=== PATIENT | female | born 1945 | race African-American/Black ===

== ENCOUNTER 2022-05-07 09:32 | Emergency (ER) | payer MEDICARE, SELFPAY ==
--- NOTE | ~2022-05-07 | XR_ITS ---
EXAMINATION: XR foot LT min 3V DATE: 05/07/2022 10:12 INDICATION: Lateral left foot pain. TECHNIQUE: 4 views of left foot were obtained. COMPARISON: None. FINDINGS: There is a nondisplaced transverse fracture of base of fifth metatarsal. Joint spaces are n ormal. IMPRESSION: 1. Nondisplaced transverse fracture of base of fifth metatarsal. Reviewed, dictated and finalized at location A.
[2022-05-07 09:36] VITALS: BP 146/76; PULSE 91; RESP 18; TEMP 37.2; O2SAT 100
--- NOTE | 2022-05-07 09:36 | ED.FALL ---
HPI - Fall General Chief Complaint: Fall Stated Complaint: glf with left leg/foot injury Time Seen by Provider: 05/07/22 09:36 History of Present Illness HPI Narrative: Patient is a 76-year-old female presenting to the emergency department for evaluation of left foot pain after a ground-level fall 2 days ago. Patient states that she tripped while trying to carry some mail. Patient states pain and swelling on the outside of her left foot without ankle pain, knee pain or hip pain. She has been ambulatory without difficulty. She denies head trauma or loss of conscious with the fall. She has been taking Tylenol with some improvement in the pain. Patient denies any significant bruising or history of injury to that ankle or foot in the past. Pain is aching in nature, worse with movement or exertion. Related Data Allergies Allergy/AdvReac Type Severity Reaction Status Date / Time No Known Allergies Allergy Verified 05/07/22 09:42 Review of Systems Review of Systems: CONSTITUTIONAL: Denies fever CARDIOVASCULAR: Denies chest pain RESPIRATORY: Denies cough or dyspnea. GASTROINTESTINAL: Denies abdominal pain SKIN: Denies rash MUSCULOSKELETAL: Denies back pain, reports left foot pain and swelling NEUROLOGIC: Denies headache [facility] Social History Social History (Updated 05/07/22 @ 10:14 by Zakiya Wolfe MD) Smoking status: Former smoker Alcohol intake: never Substance use: never Gender identity (if verbalized by the patient): Female Exam Narrative: GENERAL: Awake, alert, conversant HEAD: Normocephalic, atraumatic. EYES: PERRLA and EOMI. ENT: Nares clear, no rhinorrhea or epistaxis. Mucous membranes moist. NECK: Supple. CHEST: No respiratory distress, breathing even and non labored HEART: Regular rate, sinus rhythm ABDOMEN:Non distended, non tender Thorax: Pelvis stable to anterior lateral compression without pain on exam EXTREMITIES: Normal range of motion. Patient with mild lateral left foot edema which is tender on exam. No erythema, DP pulse 2+. Intact distal sensation. Mild deformity. No pain or tenderness at the lateral or medial malleolus. Full left knee flexion and extension without limitation. No patellar pain. SKIN: Warm, dry, no rash. NEURO:No focal deficits. Alert and oriented x3 Course Vital Signs Vital signs: Vital Signs Temperature 37.2 C 05/07/22 09:36 Pulse Rate 91 05/07/22 09:36 Respiratory Rate 18 05/07/22 09:36 Blood Pressure 146/76 H 05/07/22 09:36 Pulse Oximetry 100 05/07/22 09:36 Oxygen Delivery Room Air 05/07/22 09:36 Temperature 37.2 C 05/07/22 09:36 Pulse Rate 91 05/07/22 09:36 Respiratory Rate 18 05/07/22 09:36 Blood Pressure 146/76 H 05/07/22 09:36 Pulse Oximetry 100 05/07/22 09:36 Oxygen Delivery Room Air 05/07/22 09:36 MDM - Fall MDM Narrative Medical decision making narrative: Patient presenting to the emergency department for evaluation of left lateral foot pain after a ground-level fall that seems mechanical in nature. At the time of assessment, ABCs are intact and vital signs are stable. Patient is well-appearing and does have tenderness in the left lateral foot without significant deformity. There is a mild amount of edema present. X-ray obtained and patient has a left fifth metatarsal fracture for which she will be placed in a postop shoe. Given patient is a significant fall risk at baseline I do not think it is worth the recurrent fall risk to give her any opiate medication or crutches. Patient advised to take Tylenol, ibuprofen, given orthopedic follow-up. Imaging Data Radiologist's impression: ITS Impressions Foot X-Ray 05/07/22 10:20 IMPRESSION: 1. Nondisplaced transverse fracture of base of fifth metatarsal. Discharge Plan Discharge Clinical Impression: Closed fracture of fifth metatarsal bone of left foot Patient Disposition: Home, Self-Care Condition: Stable Additional Inst
[2022-05-07 10:31] VITALS: BP 132/72; PULSE 62; RESP 14; O2SAT 98
== END 2022-05-07 10:31 | disposition home or self-care (01) ==
PROVIDERS: Emergency Provider Emergency Medicine
DX: S92.352A Displaced fracture of fifth metatarsal bone, left foot, initial encounter for closed fracture (principal); W01.0XXA Fall on same level from slipping, tripping and stumbling without subsequent striking against object, initial encounter
CPT/HCPCS: 73630; 99284

== ENCOUNTER 2023-12-10 14:43 | Inpatient (IN) | payer MEDICARE, SELFPAY ==
[2023-12-10] VITALS (23 sets, daily range): BP systolic 95–132; BP diastolic 58–99; PULSE 102–151; RESP 14–38; TEMP 35.9–37.5; O2SAT 98–100; BMI 12.0
--- NOTE | ~2023-12-10 | XR_ITS ---
Portable chest x-ray Comparison: 12/10/2023 Clinical History: Hypoxia Findings: COPD pattern present. Lungs are clear, without focal consolidation or pleural effusion. C ardiomediastinal silhouette is stable. Bones and soft tissues are unremarkable. Impression: COPD. Reviewed, dictated and finalized at location . ER POWDER BLENDER WET Impression: COPD.
--- NOTE | ~2023-12-10 | XR_ITS ---
EXAMINATION: XR chest 1V INDICATION: Transient alteration of awareness TECHNIQUE: AP view of the chest is obtained. COMPARISON: 12/11/2018 FINDINGS: The lungs are hyperinflated but free of acute opacities. No pleural effusion or pneumothora x. The cardiomediastinal silhouette is normal. IMPRESSION: 1. No acute cardiopulmonary abnormality. Reviewed, dictated and finalized at location L. E SYSTEMS OPERATIONS MANAGER
--- NOTE | ~2023-12-10 | CT_ITS ---
EXAMINATION: CT cervical spine wo con DATE: 12/10/2023 15:22 INDICATION: Fall. TECHNIQUE: Computed tomography (CT) of the cervical spine was performed without intravenous contrast. Automated exposure control and iterative reconstruction technique were employed. The dose-length pro duct was 84.15 mGy-cm. COMPARISON: None FINDINGS: There is 9 degrees levocurvature of cervical spine. Vertebral body heights are normal. Ther e is mildly decreased disc height at C4-C5 and C5-C6. The following disc levels are specifically disc ussed: C2-C3: There is no uncovertebral joint osteoarthritis. There is mild bilateral facet joint osteoarthr itis. There is no neural foraminal stenosis. There is no central canal stenosis. C3-C4: There is moderate right and mild left uncovertebral joint osteoarthritis. There is mild bilate ral facet joint osteoarthritis. There is mild right neural foraminal stenosis. There is mild central canal stenosis. C4-C5: There is moderate right and mild left uncovertebral joint osteoarthritis. There is mild right and severe left facet joint osteoarthritis. There is no neural foraminal stenosis. There is no centra l canal stenosis. C5-C6: There is mild bilateral uncovertebral joint osteoarthritis. There is moderate right and mild l eft facet joint osteoarthritis. There is no neural foraminal stenosis. There is mild central canal st enosis. C6-C7: There is no uncovertebral joint osteoarthritis. There is mild bilateral facet joint osteoarthr itis. There is no neural foraminal stenosis. There is no central canal stenosis. C7-T1: There is no uncovertebral joint osteoarthritis. There is mild bilateral facet joint osteoarthr itis. There is no neural foraminal stenosis. There is no central canal stenosis. IMPRESSION: 1. No fracture. 2. Mild cervical spondylosis. Reviewed, dictated and finalized at location E. UNTS PAYABLE ACCOUNTANT
--- NOTE | ~2023-12-10 | CT_ITS ---
EXAMINATION: CT brain wo con DATE: 12/10/2023 15:22 INDICATION: Head injury. Fall. TECHNIQUE: Computed tomography (CT) of the head was performed without intravenous contrast. The mA wa s adjusted according to patient size. Iterative reconstruction technique was employed. The dose-lengt h product was 605.33 mGy-cm. COMPARISON: None FINDINGS: There is brain volume loss, worst in the anterior right temporal lobe. There are scattered areas of low attenuation in the cerebral white matter. There is no intracranial hemorrhage, acute inf arction, or abnormal intracranial mass lesion. The ventricles are normal in size. The paranasal sinus es are clear. The mastoid air cells are normal. The orbits are normal. IMPRESSION: 1. Mild nonspecific cerebral white matter disease, which likely represents chronic small vessel ische merlin disease. Reviewed, dictated and finalized at location E. ECTIONS COUNSELOR IMPRESSION: 1. Mild nonspecific cerebral white matter disease, which likely represents mercury recoverer verona small vessel ischemic disease.
--- NOTE | 2023-12-10 14:41 | ED.GENADULT ---
HPI - General Adult General Chief complaint: Altered Mental Status Stated complaint: unresponsive History of Present Illness HPI narrative: 79 years old female came from assisting living by ambulance because found unresponsive on the floor. Last time was seen by somebody Three days ago On arrival to the ED patient is awake, disoriented x4. No family member at the bedside, no old medical records are available at this time. Related Data Allergies Allergy/AdvReac Type Severity Reaction Status Date / Time No Known Allergies Allergy Verified 05/07/22 09:42 Review of Systems Review of Systems: ROS unobtainable: Yes unobtainable due to mental status [facility] Social History Social History (Updated 05/07/22 @ 10:14 by Zakiya Wolfe MD) Smoking status: Former smoker Alcohol intake: never Substance use: never Gender identity (if verbalized by the patient): Female Course Vital Signs Vital signs: Vital Signs Temperature 36.6 C 12/10/23 14:37 Pulse Rate 148 H 12/10/23 14:37 Respiratory Rate 38 H 12/10/23 14:37 Blood Pressure 117/70 12/10/23 14:37 Oxygen Delivery Room Air 12/10/23 14:37 Temperature 36.6 C 12/10/23 14:37 Pulse Rate 148 H 12/10/23 14:37 Respiratory Rate 38 H 12/10/23 14:37 Blood Pressure 117/70 12/10/23 14:37 Oxygen Delivery Room Air 12/10/23 14:37 Medical Decision Making [facility] Narrative Medical decision making narrative: Patient came from assisting living with unresponsiveness, found on the ground for unknown duration, last time was seen by somebody 3-4 days ago. Vital signs on arrival showing heart rate of 150 beats per minute, respiration at 38 beats per minute, no fever, Physical examination showed cachectic patient, unresponsive to painful stimulation, eyes open, no signs of trauma, C-collar was placed at that time. Differential diagnosis include dehydration, electrolyte imbalance, intracranial pathology, cervical fracture, pneumonia, urinary tract infection, rhabdomyolysis, sepsis Blood workup today showed WBC of 13.9, hemoglobin 16.2/hemoconcentrated, sodium of 167/hypovolemic hypernatremic, creatinine of 4.7, lactic acid of 6.1/sepsis versus poor peripheral circulation secondary to hypovolemia, CPK 270 Urinalysis 1+ leukocyte esterase, 11-20 urine WBC, In the ED patient received 2 L of normal saline, head vancomycin, Zosyn with gradual improvement Admit to ICU, discussed with Dr. santana and Dr. Navarro Currently patient is not known to be full code or DNR, I was able to phone her brother who is going to discuss the situation with her family and come back to me. Patient's brother phone me back and requested to make the patient do not resuscitate after speaking to the rest of her family Medical Records Medical records reviewed: Yes I reviewed the external patient's medical records. Vital Signs Vital Signs: Vital Signs Temperature 36.6 C 12/10/23 14:37 Pulse Rate 148 H 12/10/23 14:37 Respiratory Rate 38 H 12/10/23 14:37 Blood Pressure 117/70 12/10/23 14:37 Oxygen Delivery Room Air 12/10/23 14:37 Temperature 36.6 C 12/10/23 14:37 Pulse Rate 148 H 12/10/23 14:37 Respiratory Rate 38 H 12/10/23 14:37 Blood Pressure 117/70 12/10/23 14:37 Oxygen Delivery Room Air 12/10/23 14:37 Lab Data Lab results reviewed: Yes I reviewed the patient's lab results. 12/10/23 14:59 12/10/23 14:59 Labs: Lab Results 12/10/23 12/10/23 Range/Units 14:56 14:59 WBC 13.9 H (4.5-10.0) K/mm3 RBC 5.50 H (4.2-5.4) M/mm3 Hgb 16.2 H (12.0-15.0) g/dL Hct 51.5 H (37.0-47.0) % MCV 93.6 (80-100) fl MCH 29.5 (26-34) pg MCHC 31.5 L (32-36) g/dl RDW 14.7 H (11.5-14.5) % P
--- NOTE | 2023-12-10 14:42 | ECG_ITS ---
Measurements Intervals [place] Rate: 121 P: 85 ND: 150 QRS: 76 QRSD: 77 T: -51 QT: 338 QTc: 480 Interpretive Statements POOR QUALITY ECG BECAUSE OF BASELINE ARTIFACT SINUS TACHYCARDIA ST AND T ABNORMALITY CONSIDER INFERIOR AND ANTERIOR ISCHEMIA ABNORMAL ECG COMPARED TO ECG 12/11/2018 14:42:41 HEART RATE INCREASED, ST SEGMENT DEPRESSION IS PRESENT AND SIGNIFICANT BASELINE ARTIFACT IS ALSO PRESENT Electronically Signed On 12-11-2023 12:20:17 INTERLOCKING AND SIGNAL MECHANIC by Eric Hernandez M.D.
[2023-12-10] MEDS: SODIUM CHLORIDE 0.9% IV 1,000 ML 999 ML IV CONT ×2 (15:10→15:49)
[2023-12-10 15:11] LABS: Basophils Percent Auto 0.1 % (0.2-1.2); Hematocrit 51.5 % (37.0-47.0); Hemoglobin 16.2 g/dL (12.0-15.0); Immature Granulocyte Absolute 0.07 K/mm3 (0.00-0.031); Immature Granulocyte Percent A 0.5 % (0-0.5); Lymphocytes Absolute Auto 0.56 K/mm3 (0.9-3.2); Mean Corpuscular HGB Conc 31.5 g/dl (32-36); Mean Corpuscular Hemoglobin 29.5 pg (26-34); Mean Corpuscular Volume 93.6 fl (80-100); Mean Platelet Volume 10.1 fl (7.4-10.4); Monocytes Absolute Auto 0.6 K/mm3 (0.1-0.6); Monocytes Percent Auto 4.4 % (2.6-8.5); Neutrophils Absolute Auto 12.6 K/mm3 (1.3-6.7); Platelet Count Result 352 k/mm3 (150-375); Red Cell Distribution Width 14.7 % (11.5-14.5); White Blood Count 13.9 K/mm3 (4.5-10.0)
[2023-12-10 15:22] LABS: INR 1.1; Partial Thromboplastin Time 23.5 SECONDS (22.3-36.8); Prothrombin Time 14.9 Seconds (11.1-14.7)
[2023-12-10 15:27] LABS: Lactic Acid Reflex 6.1 mmol/L (0.7-2.0)
[2023-12-10 15:28] LABS: Alanine Aminotransferase 42 U/L (6-35); Albumin Level 5.1 g/dL (3.5-5.1); Alkaline Phosphatase 115 U/L (38-126); Anion Gap 29 mmol/L (8-16); Aspartate Amino Transferase 45 U/L (14-36); Bilirubin,Total 0.9 mg/dL (0.2-1.3); Blood Urea Nitrogen 46 mg/dL (7-17); CRP < 0.5 mg/dL (<1.0); Calcium 11.3 mg/dL (8.4-10.2); Carbon Dioxide 13 mmol/L (22-30); Chloride 125 mmol/L (98-107); Estimated CRCL calculation 4 ml/min; Estimated Glomerular Filt Rate 11; Glucose 180 mg/dL (65-110); Potassium 3.9 mmol/L (3.4-5.0); Sodium 167 mmol/L (137-145)
[2023-12-10 15:37] LABS: Appearance Urine Cloudy (Clear); Bacteria Urine None Seen /hpf; Bilirubin Urine Negative (Negative); Blood Urine 2+ (Negative); Color Urine Dark Yellow (Yellow); Glucose Urine UA Negative (Negative); Ketones Urine 1+ mg/dL (Negative); Leukocyte Esterase Ur 1+ LEU/UL (Negative); Need Manual Microscopic Reviewed; Nitrate Urine Negative (Negative); Non Pathogenic Casts >20; Protein Urine 2+ mg/dL (Negative); Specific Grav Ur 1.021 (1.001-1.035); Squamous Epithelial Cell Urine Occasional /hpf (Few)
[2023-12-10 15:38] LABS: Creatine Kinase 270 U/L (30-135)
[2023-12-10 15:44] LABS: Add Urine Microscopic? YES
[2023-12-10] MEDS: PIPERACILLIN/TAZ 2.25G/NS 50ML 2.25 GM/50 ML BAG IVPB ×2 (17:36→22:23)
[2023-12-10 17:44] LABS: Sodium Urine Random 125 meq/L
[2023-12-10 17:50] LABS: Lactic Acid Reflex 4.1 mmol/L (0.7-2.0)
[2023-12-10 17:51] LABS: Basophils Percent Auto 0.1 % (0.2-1.2); Hematocrit 44.7 % (37.0-47.0); Hemoglobin 13.3 g/dL (12.0-15.0); Immature Granulocyte Absolute 0.13 K/mm3 (0.00-0.031); Immature Granulocyte Percent A 0.9 % (0-0.5); Lymphocytes Absolute Auto 1.06 K/mm3 (0.9-3.2); Lymphocytes Percent Auto 7.2 % (18.3-44.2); Mean Corpuscular HGB Conc 29.8 g/dl (32-36); Mean Corpuscular Hemoglobin 29.4 pg (26-34); Mean Corpuscular Volume 98.9 fl (80-100); Mean Platelet Volume 10.1 fl (7.4-10.4); Monocytes Absolute Auto 0.9 K/mm3 (0.1-0.6); Monocytes Percent Auto 6.4 % (2.6-8.5); Neutrophils Absolute Auto 12.5 K/mm3 (1.3-6.7); Neutrophils Percent Auto 85.4 % (45.5-73.1); Platelet Count Result 244 k/mm3 (150-375); Red Blood Count 4.52 M/mm3 (4.2-5.4); Red Cell Distribution Width 15.1 % (11.5-14.5); White Blood Count 14.7 K/mm3 (4.5-10.0)
[2023-12-10 17:52] LABS: Anion Gap 20 mmol/L (8-16); Blood Urea Nitrogen 40 mg/dL (7-17); Calcium 8.8 mg/dL (8.4-10.2); Carbon Dioxide 13 mmol/L (22-30); Chloride 131 mmol/L (98-107); Estimated CRCL calculation 6 ml/min; Estimated Glomerular Filt Rate 16; Glucose 174 mg/dL (65-110); Potassium 3.6 mmol/L (3.4-5.0); Sodium 164 mmol/L (137-145)
[2023-12-10 18:03] LABS: Platelet Estimate Adequate (Adequate); Poikilocytosis 1+ (NORMAL); Target Cells 1+ (NORMAL)
[2023-12-10 18:04] LABS: Schistocytes None Seen (NORMAL)
[2023-12-10 18:06] LABS: Reflex Lactic Acid Yes or No Add Lactic
[2023-12-10] MEDS: LACTATED RINGERS 1,000 ML 150 ML IV CONT (18:16)
[2023-12-10] MEDS: POTASSIUM CHLORIDE INJ 40 MEQ in SODIUM CHLORIDE 0.9% IV 500 ML 130 MEQ IVPB (18:16)
[2023-12-10] MEDS: VANCOMYCIN 500 MG/NS 100 ML 500 MG/100 ML BAG 100 MG IVPB (18:17)
[2023-12-10 18:41] LABS: Thyroid Stimulating Hormone Reflex 0.498 uIU/mL (0.465-4.68)
--- NOTE | 2023-12-10 18:45 | PM.IMHP ---
H&P: HPI History of Present Illness Date/Time: 12/10/23 18:45 Chief Complaint: Unresponsive Narrative: 78 y/o F presents here for evaluation after she was found unresponsive/obtunded with PMH of possible DM and HTN. Patient presented here via EMS from an adult living center (no name on file) for evaluation of altered mental status/unresponsiveness. Patient was last seen on Thursday, 12/08, A&Ox4 per EMS report. Found on floor today unresponsive after a wellness check. No paperwork from facility. Patient arrived unresponsive to painful stimuli, spontaneous eye opening, and nonverbal. Patient is cachectic. Initially no family members or friends available to provide past medical history or code status. ED later spoke with brother, requesting patient be made DNR. Brother also believes she may have been recently diagnosed with diabetes. Per external med rec, most recent prescription was for amlodipine and betamethasone 0.05% topical. Unclear if patient has been compliant. No further history available at this time, majority of HPI obtained through chart review and ED provider report. Patient is reporting chest discomfort with mild shortness of breath, right biceps and right shoulder discomfort. No deformities or ecchymosis on exam. Chest wall tenderness is reproducible. Initial VS at presentation: 97.8 F, HR 148, RR 38, 117/70, 99% on RA. ED workup showed leukocytosis with WBC of 13.9, he had concentrated with RBC 5.5, HGB 16.2, HCT 51.5, hypernatremia at 167, elevated chloride at 1:31 a.m., gap 20, creatinine 4.7, glucose 180, lactic acid 6.1, calcium 11.3, LFTs mildly elevated, CK 270, and UA equivocal. Head CT suggestive of chronic small-vessel ischemic disease. C-spine CT showed no acute fractures and mild cervical spondylosis. CXR showed lungs to be hyperinflated without acute opacities effusions or pneumothorax and cardiomediastinal silhouette normal. Review of Systems Review of Systems: limited ROS unobtainable: Yes unobtainable due to medical condition and unobtainable due to mental status [facility] Past Medical History Medical History (Updated 12/10/23 @ 20:41 by Lala Arias, TRUST MAIL CLERK) Hypertension Surgical History Surgical History (Updated 12/10/23 @ 19:16 by Lala Arias APRN) No pertinent past surgical history Social History Social History (Updated 05/07/22 @ 10:14 by Zakiya Wolfe MD) Smoking status: Unknown if ever smoked Alcohol intake: never Substance use: never Gender identity (if verbalized by the patient): Female Meds Home Medications and Allergies Home Medications Medication Instructions Recorded Confirmed Type amlodipine 5 mg tablet 5 mg PO DAILY 12/10/23 12/10/23 History betamethasone dipropionate 0.05 % 1 applic topical EVERY OTHER DAY 12/10/23 12/10/23 History lotion Allergies Allergy/AdvReac Type Severity Reaction Status Date / Time No Known Allergies Allergy Verified 05/07/22 09:42 Vital Signs Vital Signs - 24 hr 12/10/23 14:37 12/10/23 14:49 12/10/23 14:53 Temperature 97.8 F 99.5 F Pulse Rate 148 H 146 H 151 H Respiratory Rate 38 H 34 H 33 H Blood Pressure 117/70 117/70 Pulse Oximetry Oxygen Delivery Room Air 12/10/23 15:00 12/10/23 15:01 12/10/23 15:36 Temperature 99.3 F 99.3 F Pulse Rate 147 H 145 H 126 H Respiratory Rate 28 H 33 H 25 H Blood Pressure 102/90 Pulse Oximetry 99 99 Oxygen Delivery 12/10/23 15:48 12/10/23 15:49 12/10/23 16:00 Temperature Pulse Rate 123 H 123 H 123 H Respiratory Rate 22 H 19 23 H Blood Pressure 119/65 132/63 Pulse Oximetry 100 100 Oxygen Delivery 12/10/23 16:01 12/10/23 16:32 12/10/23 16:46 Temperature Pulse Rate 122 H 128 H 123 H Respiratory Rate 14 17 18 Blood Pressure 95/74 L Pulse Oximetry 99 Oxygen Delivery 12/10/23 16:47 12/10/23 17:00 12/10/23 17:01 Temperature Pulse Rate 123 H 117 H 119 H Respiratory Rate 20 19 19 Blood Pressure
--- NOTE | 2023-12-10 18:56 | ADMGEN ---
This patient, Little Calhoun, was admitted to Intensive Care Unit-5. Patient/family oriented to hospital policies and general routines including ID bracelet, bed and alarms, visiting hours, pain management, procedures, bathroom and other care routines, personal items, smoking policy, room service/diet, and visiting hours. Information on how to activate the Rapid Response Team has been discussed. Patient/Family are encouraged to report perceived risks to care and to ask questions if they do not understand what they are told or what they should do.
[2023-12-10] MEDS: LACTATED RINGERS 1,000 ML 999 ML IV CONT (20:18)
[2023-12-10 20:28] LABS: Hemoglobin A1C 5.9 % (<5.7)
[2023-12-10 21:29] LABS: Troponin I 0.208 ng/mL (0.000-0.034)
[2023-12-10 21:32] LABS: Influenza A QL RT-PCR Negative (Negative); Influenza B QL RT-PCR Negative (Negative); RSV RNA, RT-PCR Negative (Negative); SARS-CoV-2 RNA PCR Negative (Negative)
[2023-12-10 22:04] LABS: MRSA (PCR) NOT DETECTED (NOT DETECTE)
[2023-12-10 23:21] LABS: Magnesium 2.7 mg/dL (1.6-2.3); Phosphorus 4.1 mg/dL (2.5-4.5)
[2023-12-11] VITALS (20 sets, daily range): BP systolic 100–133; BP diastolic 51–75; PULSE 98–122; RESP 13–35; TEMP 36.6–37.2; O2SAT 68–100
[2023-12-11] LABS: Anion Gap 15 mmol/L (8-16); Blood Urea Nitrogen 32 mg/dL (7-17); Calcium 9.4 mg/dL (8.4-10.2); Carbon Dioxide 17 mmol/L (22-30); Chloride 130 mmol/L (98-107); Estimated CRCL calculation 10 ml/min; Estimated Glomerular Filt Rate 33; Glucose 172 mg/dL (65-110); Potassium 4.8 mmol/L (3.4-5.0); Sodium 162 mmol/L (137-145)
[2023-12-11 00:15] LABS: Troponin I 0.252 ng/mL (0.000-0.034)
[2023-12-11] MEDS: DEXTROSE 5% 1,000 ML 1,000 ML 167 ML IV CONT (00:44)
[2023-12-11 02:08] LABS: Glucose Point of Care 218 mg/dl (65-105)
[2023-12-11 03:48] LABS: Basophils Percent Auto 0.3 % (0.2-1.2); Hematocrit 44.6 % (37.0-47.0); Hemoglobin 13.7 g/dL (12.0-15.0); Immature Granulocyte Absolute 0.08 K/mm3 (0.00-0.031); Immature Granulocyte Percent A 0.6 % (0-0.5); Lymphocytes Absolute Auto 1.71 K/mm3 (0.9-3.2); Lymphocytes Percent Auto 12.5 % (18.3-44.2); Mean Corpuscular HGB Conc 30.7 g/dl (32-36); Mean Corpuscular Hemoglobin 29.6 pg (26-34); Mean Corpuscular Volume 96.3 fl (80-100); Monocytes Absolute Auto 0.6 K/mm3 (0.1-0.6); Monocytes Percent Auto 4.2 % (2.6-8.5); Neutrophils Absolute Auto 11.3 K/mm3 (1.3-6.7); Neutrophils Percent Auto 82.4 % (45.5-73.1); Nucleated Red Blood Cells Perc 0.1 % (0.0-0.2); Platelet Count Result 191 k/mm3 (150-375); Red Blood Count 4.63 M/mm3 (4.2-5.4); Red Cell Distribution Width 15.1 % (11.5-14.5); White Blood Count 13.7 K/mm3 (4.5-10.0)
[2023-12-11 04:00] LABS: Glucose Point of Care 263 mg/dl (65-105)
[2023-12-11 04:01] LABS: Lactic Acid Reflex 2.5 mmol/L (0.7-2.0)
[2023-12-11 04:06] LABS: Alanine Aminotransferase 32 U/L (6-35); Albumin Level 3.8 g/dL (3.5-5.1); Alkaline Phosphatase 78 U/L (38-126); Anion Gap 11 mmol/L (8-16); Aspartate Amino Transferase 96 U/L (14-36); Bilirubin,Total 0.9 mg/dL (0.2-1.3); Blood Urea Nitrogen 26 mg/dL (7-17); CRP < 0.5 mg/dL (<1.0); Calcium 8.9 mg/dL (8.4-10.2); Carbon Dioxide 22 mmol/L (22-30); Chloride 122 mmol/L (98-107); Creatine Kinase 1302 U/L (30-135); Estimated CRCL calculation 13 ml/min; Estimated Glomerular Filt Rate 44; Glucose 287 mg/dL (65-110); Magnesium 2.3 mg/dL (1.6-2.3); Phosphorus 1.6 mg/dL (2.5-4.5); Potassium 4.1 mmol/L (3.4-5.0); Sodium 155 mmol/L (137-145)
[2023-12-11 04:22] LABS: Troponin I 0.192 ng/mL (0.000-0.034)
[2023-12-11] MEDS: INSULIN ASPART (*BKC) 100 UNITS/ML SUB-Q ×2 (05:17→05:30)
--- NOTE | 2023-12-11 05:30 | PC.NURSE ---
This RN at bedside providing oral care to patient who is resisting. Patient HOB at 30 degrees and is A&O to self only. Patient has had thick, yellow secretions which this RN has suctioned periodically. Patient is heard gurgling sputum to which this RN is prompting her not to swallow. Patient did allow this RN to suction some of the sputum. However, patient is now dropping her O2 sats with suctioning. Patient placed on nasal cannula. RT called to bedside to assist in deep NT suction since patient resists care. Dr. Leon notified of patient decompensating. ABG obtained and RT at bedside titrating O2 to airvo with 15L NRB. Chest xray obtained. Patient family notified of patient condition after multiple calls placed by this RN. Family friend who lives locally and cares for patient is on his way to this facility.
[2023-12-11] MEDS: PIPERACILLIN/TAZ 2.25G/NS 50ML 2.25 GM/50 ML BAG IVPB (06:21)
[2023-12-11 06:26] LABS: Alveolar/Arterial O2 Gradient 569.2 mmHg; Base Excess ABG 2.5 mEq/l (+/-2.0); Carboxyhemoglobin 0.4 % THb (0-2.0); Fractional Inspired Oxygen 90 %; HCO3 ABG 26.6 mEq/l (22.0-26.0); Methemoglobin ABG 0.3 %THb (0-1.5); Oxygen Content ABG 13.1 %vol (16.0-22.0); PCO2 ABG 39.2 mmHg (35.0-45.0); PO2 FiO2 Ratio Arterial Blood 0.36 %; Reduced Hemoglobin 32.6 %THb (0-5.0); pH ABG 7.449 (7.350-7.450)
[2023-12-11 06:29] LABS: PO2 ABG 32.3 mmHg (80.0-100.0)
[2023-12-11 06:30] LABS: Oxygen Saturation ABG 65.1 % (95.0-100.0)
[2023-12-11 06:31] LABS: Oxyhemoglobin 66.7 % THb (90.0-100.0)
[2023-12-11 06:32] LABS: Site Drawn LEFT BRACHIAL
[2023-12-11 06:33] LABS: Device NON-REBREATHER MASK
[2023-12-11] MEDS: LEVALBUTEROL NEB 1.25 MG/3 ML INHALATION (06:38)
[2023-12-11 06:43] LABS: Glucose Point of Care 293 mg/dl (65-105)
[2023-12-11 06:45] LABS: Reflex Lactic Acid Yes or No Add Lactic
[2023-12-11] MEDS: LACTATED RINGERS 1,000 ML 100 ML IV CONT (07:52)
[2023-12-11 07:54] LABS: Glucose Point of Care 243 mg/dl (65-105)
--- NOTE | 2023-12-11 08:00 | WPDCNINT ---
Assessment and Plan Assessment and plan (1) Acute respiratory failure: Code(s): J96.00 - Acute respiratory failure, unspecified whether with hypoxia or hypercapnia Status: Acute Assessment and Plan: 12/11: Early this morning patient started having desaturation with O2 sats in the 60s to 80s. Placed on high-flow therapy, 60 L flow rate on 100% FiO2 along with 100% non-rebreather. O2 sats remain in the low 80s -breathing treatment was given -patient is currently a DNR, discussed with patient's brother, Jesus Calhoun, and the Clark who looks after her, as the brother is in [place] and has and visited the patient is a few years. -patient is divorce, does not have any children -discussed with the brother at length and he stated that he has spoken to his brothers and sisters and they have decided to make her comfortable in that they do not want her to suffer. -I discussed this with the Clark was also in agreement as he stated that she has lost a lot of weight, appetite has been poor, she has got dementia. (2) Acute hypernatremia: Code(s): E87.0 - Hyperosmolality and hypernatremia Status: Acute Assessment and Plan: Patient presented with unresponsiveness, was found down on the floor, hypernatremia with sodium of 167 -patient was started on D5 water with sodium of 155 this morning -have stopped the D5, will start on LR -do not want to drop her sodium levels too fast -patient now on comfort measures (3) RAIZA (acute kidney injury): Code(s): N17.9 - Acute kidney failure, unspecified Status: Acute Assessment and Plan: Patient presented with acute kidney injury with a creatinine of 4.70 -adequately fluid-resuscitated, creatinine trending down -lactic acid was also elevated which is trending down -adequate urine output -continue to monitor -nephrology has been consulted (4) Rhabdomyolysis: Code(s): M62.82 - Rhabdomyolysis Status: Acute Assessment and Plan: Patient was found down on the floor, for probably 3 days -CK levels were elevated, patient has been adequately fluid-resuscitated (5) Cachexia: Code(s): R64 - Cachexia Status: Acute Assessment and Plan: This is been an ongoing issue according the Clark that cares for the patient -very poor appetite, patient not taking care of herself (6) Elevated glucose: Code(s): R73.09 - Other abnormal glucose Status: Acute Assessment and Plan: Patient has a history of diabetes with elevated blood sugars -started on high-dose sliding scale (7) Sepsis: Qualifiers: Sepsis type: sepsis due to unspecified organism Sepsis acute organ dysfunction status: with acute organ dysfunction Severe sepsis acute organ dysfunction type: acute renal failure Acute renal failure type: unspecified Severe sepsis shock status: with septic shock Qualified Code(s): A41.9 - Sepsis, unspecified organism; R65.21 - Severe sepsis with septic shock; N17.9 - Acute kidney failure, unspecified Code(s): A41.9 - Sepsis, unspecified organism Status: Acute Assessment and Plan: Patient presented with tachycardia, tachypnea, elevated WBC, lactic acid -chest x-ray was clear, urine analysis did show positive for proteins, ketones, leukocyte esterase, negative for bacteria -was started on Zosyn and vancomycin (8) Altered mental status: Code(s): R41.82 - Altered mental status, unspecified Status: Acute Assessment and Plan: Likely related to hypernatremia, acute kidney injury with uremia, hypoxia -will treat underlying cause Plan DVT prophylaxis: SCDs Stress ulcer prophylaxis: Not indicated Nutrition: NPO Code Status: DNR/DNI. Comfort measures Critical Care Time Spent: 47 minutes 12/11/2023: I discussed with patients brother, Jesus Calhoun, on the phone, who has not seen a for few years, she has a Clark from her scientology, who cares for her. I discussed with both o
[2023-12-11] MEDS: MORPHINE SULFATE INJ (*CRX) 10 MG/ML AMP 5 MG IV PUSH (08:33)
[2023-12-11] MEDS: LORazepam INJ (*CRX) 2 MG/ML VIAL IV PUSH ×2 (08:34→11:39)
[2023-12-11] MEDS: MORPHINE SULFATE (*CRX) 2 MG/ML INJ IV PUSH (11:40)
--- NOTE | 2023-12-11 14:11 | PM.IMPN ---
Progress Note: A&P Assessment and Plan (1) Acute respiratory failure: Code(s): J96.00 - Acute respiratory failure, unspecified whether with hypoxia or hypercapnia Status: Acute Assessment and Plan: 12/11: Early this morning patient started having desaturation with O2 sats in the 60s to 80s. Placed on high-flow therapy, 60 L flow rate on 100% FiO2 along with 100% non-rebreather. O2 sats remain in the low 80s -breathing treatment was given -patient is currently a DNR, transition teacher discussed with patient's brother, Jesus Calhoun, and the Clark who looks after her, as the brother is in [place] and has and visited the patient is a few years. -patient is divorce, does not have any children -discussed with the brother at length and he stated that he has spoken to his brothers and sisters and they have decided to make her comfortable in that they do not want her to suffer. -I discussed this with the Clark was also in agreement as he stated that she has lost a lot of weight, appetite has been poor, she has got dementia. (2) Acute hypernatremia: Code(s): E87.0 - Hyperosmolality and hypernatremia Status: Acute Assessment and Plan: Patient presented with unresponsiveness, was found down on the floor, hypernatremia with sodium of 167 -patient was started on D5 water with sodium of 155 this morning -have stopped the D5, will start on LR -do not want to drop her sodium levels too fast -patient now on comfort measures (3) RAIZA (acute kidney injury): Code(s): N17.9 - Acute kidney failure, unspecified Status: Acute Assessment and Plan: Patient presented with acute kidney injury with a creatinine of 4.70 -adequately fluid-resuscitated, creatinine trending down -lactic acid was also elevated which is trending down -adequate urine output -continue to monitor -nephrology has been consulted (4) Rhabdomyolysis: Code(s): M62.82 - Rhabdomyolysis Status: Acute Assessment and Plan: Patient was found down on the floor, for probably 3 days -CK levels were elevated, patient has been adequately fluid-resuscitated (5) Cachexia: Code(s): R64 - Cachexia Status: Acute Assessment and Plan: This is been an ongoing issue according the Clark that cares for the patient -very poor appetite, patient not taking care of herself (6) Elevated glucose: Code(s): R73.09 - Other abnormal glucose Status: Acute Assessment and Plan: Patient has a history of diabetes with elevated blood sugars -started on high-dose sliding scale (7) Sepsis: Qualifiers: Sepsis type: sepsis due to unspecified organism Sepsis acute organ dysfunction status: with acute organ dysfunction Severe sepsis acute organ dysfunction type: acute renal failure Acute renal failure type: unspecified Severe sepsis shock status: with septic shock Qualified Code(s): A41.9 - Sepsis, unspecified organism; R65.21 - Severe sepsis with septic shock; N17.9 - Acute kidney failure, unspecified Code(s): A41.9 - Sepsis, unspecified organism Status: Acute Assessment and Plan: Patient presented with tachycardia, tachypnea, elevated WBC, lactic acid -chest x-ray was clear, urine analysis did show positive for proteins, ketones, leukocyte esterase, negative for bacteria -was started on Zosyn and vancomycin (8) Altered mental status: Code(s): R41.82 - Altered mental status, unspecified Status: Acute Assessment and Plan: Likely related to hypernatremia, acute kidney injury with uremia, hypoxia -will treat underlying cause Plan DVT prophylaxis: SCDs Stress ulcer prophylaxis: Not indicated Nutrition: NPO Code Status: DNR/DNI. Comfort measures Subjective Date/time seen: 12/11/23 14:11 Interval history: Patient unresponsive. Comfort measures has been implemented. Review of Systems Review of Systems: ROS unobtainable: Yes unobtainable due to
--- NOTE | 2023-12-11 18:56 | PC.NURSE ---
Patient at 1845. Call placed to brother Jesus Calhoun [phone]. Call went straight to voice mail. Asked him to call us here at the hospital. Bishop Luis Whittington called also.
--- NOTE | 2023-12-11 21:22 | PC.NURSE ---
Nik at [facility] coroner's office notified of home [facility] 12/11/23 at 2122 by this RN.
[2023-12-12 20:16] LABS: Osmolality, Urine 395 mOsm/kg (50-1200)
--- NOTE | 2023-12-15 09:19 | PM.DDS ---
Discharge Summary Date and Time Date of : 12/11/23 Time of : 18:45 Provider Pronounced By: Nancy Brice RN and Miesha Dawson RN Probable Cause of Probable Cause of : Sepsis, dehydration, RAIZA, UTI, hypernatremia Summary Hospital Course: 79-year-old female who presented via ambulance after being found unresponsive on the floor. Duration unknown last time seen by somebody 3-4 days ago. Vital signs on arrival showed heart rate of 150 beats per minute respiratory rate of 30 8 beats per minute afebrile. Unresponsive to painful stimuli no signs of trauma noted. Laboratory workup revealed WBC count of 13.9 hemoglobin of 16.2 sodium of 167 creatinine of 4.7 lactate of 6.1. CPK 270 UA positive for urinary tract infection. Patient was aggressively hydrated with IV fluids started on empiric antibiotics pancultured. Code status was reviewed and noted to be do not resuscitate. Patient was placed in ICU and further treatment was done during the ICU stay she became hypoxic requiring high-flow oxygen. At that point further discussion was made and transition to comfort care was implemented. She subsequently later that evening. Necessary arrangements were made. Additional Data Confirmation of as documented by pronouncing clinician: Pupillary Reflex, Palpable Pulses, Response to Stimuli, Heart Tones and Breath Sounds Name of Provider Notified: Dr. Pham Time Provider Notified: 18:46 Provider Requests Autopsy: No Family Requests Autopsy: No Rehabilitation Teacher Notified: Yes Date [facility] Notified of : 12/11/23 Time [facility] Notified of : 18:48
== END 2023-12-11 18:45 | disposition expired | DRG 871 ==
LOC: ANHED 15:57 → ANHICU 17:25
PROVIDERS: Internal Medicine; Student in an Organized Health Care Education/Training Program; Admitting Provider Family Medicine; Emergency Provider Emergency Medicine; Visit Provider Internal Medicine
DX: A41.9 Sepsis, unspecified organism (principal); J96.00 Acute respiratory failure, unspecified whether with hypoxia or hypercapnia; R65.21 Severe sepsis with septic shock; R64 Cachexia; Z68.1 Body mass index [BMI] 19.9 or less, adult; N17.9 Acute kidney failure, unspecified; E87.0 Hyperosmolality and hypernatremia; M62.82 Rhabdomyolysis; N39.0 Urinary tract infection, site not specified; E86.0 Dehydration; E11.9 Type 2 diabetes mellitus without complications; I10 Essential (primary) hypertension; J44.9 Chronic obstructive pulmonary disease, unspecified; M47.812 Spondylosis without myelopathy or radiculopathy, cervical region; R07.89 Other chest pain; Z20.822 Contact with and (suspected) exposure to COVID-19; Z87.891 Personal history of nicotine dependence; Z66 Do not resuscitate
CPT/HCPCS: 36415; 36600; 70450; 71045; 72125; 80048; 80053; 81001; 82375; 82550; 82805; 82948; 83036; 83050; 83605; 83735; 83930; 83935; 84100; 84300; 84443; 84484; 85025; 85610; 85730; 86140; 87040; 87086; 87637; 87641; 93005; 94640; 96360; 99285; A9270; J1815; J2060; J2270; J2543; J3370; J3480; J7030; J7040; J7070; J7120